=== PATIENT | female | born 1990 | race Caucasian/White ===

== ENCOUNTER 2016-04-07 11:10 | Emergency (ER) | payer OTHER ==
[~2016-04-07] VITALS: Wt 78.0 kg
[2016-04-07] MEDS ORDERED: ONDANSETRON (ODT) 4 MG TAB ODT STA (11:43)
[2016-04-07] MEDS ORDERED: ONDA4TAB14 PO (11:45)
[2016-04-07] MEDS ORDERED: FAMO-18 PO (11:46)
--- NOTE | 2016-04-07 12:27 | ERD ---
ER Documentation Chief Complaint Date/Time DATE: 04/07/16 TIME: 12:23 Chief Complaint ABDOMINAL PAIN CENTRAL AREA WITH WEIRD SMELL . DIAHHREA AND VOMITNG HPI 25 year old female presents to the emergency department status post cholecystectomy since December 2015. Patient is complaining of intermittent abdominal pain, nausea, vomiting and diarrhea since the surgery back in December 2015. Patient is also complaining of a foul odor from her stools. Patient states that she has been evaluated by her primary care physician but they could not find anything, her physician has told her to lose weight. Patient denies taking any medications for this. She denies any medical problems ROS All systems reviewed and are negative except as per history of present illness. Medications Home Meds Active Scripts Famotidine* (Pepcid*) 20 Mg Tablet, 20 MG PO DAILY, #20 TAB Prov:SHIV PORRAS PA-C 04/07/16 Ondansetron (Ondansetron Odt) 4 Mg Tab.rapdis, 4 MG PO Q6H Y for NAUSEA AND/OR VOMITING, #10 TAB Prov:SHIV PORRAS PA-C 04/07/16 Allergies Allergies: Coded Allergies: No Known Allergy (Unverified , 04/07/16) PMhx/Soc History of Surgery: Yes (CHOLECYSTECTOMY ) Anesthesia Reaction: No Hx Neurological Disorder: No Hx Respiratory Disorders: No Hx Cardiac Disorders: No Hx Psychiatric Problems: No Hx Miscellaneous Medical Probl: Yes (OBESITY,VIT D DEFICIENCY) Hx Alcohol Use: No Hx Substance Use: No Hx Tobacco Use: No Smoking Status: Never smoker Physical Exam Vitals Vital Signs Date Time Temp Pulse Resp B/P Pulse Ox O2 Delivery O2 Flow Rate FiO2 04/07/16 11:20 98.5 102 20 138/82 99 Physical Exam GENERAL: well-developed/well-nourished, in no apparent distress, non-toxic appearing HENT: NC/AT, moist mucous membranes EYES: Conjunctiva normal NECK: Supple, no lymphadenopathy PULM: CTA bilaterally, no rales, rhonchi, or wheezing heard CV: Normal S1S2, RRR, good capillary refill GI: Soft, non-distended, non-tender to palpation Normal bowel sounds, no masses or organomegaly felt on exam No gross peritonitis, no bruits Negative Rovsing, negative Vargas, negative McBurney's point, Negative CVAT BACK: No masses EXT: No clubbing, cyanosis, or edema NEURO: Alert and Orientated SKIN: Intact, normal turgor PSYCH: Normal mood and mentation Results 24 hrs Current Medications Medications (Trade) Dose Ordered Sig/Karina Route PRN Reason Start Time Stop Time Status Last Admin Dose Admin Ondansetron HCl (Zofran Odt) 4 mg ONCE STAT ODT 04/07/16 11:43 04/07/16 11:44 DC 04/07/16 11:47 Procedures/MDM This is a 25-year-old female status post cholecystectomy that occurred December 2015 presenting to the emergency room complaining of on and off abdominal pain, nausea, vomiting, foul odor stools since the surgery. Patient states that she has already been evaluated by her primary care physician with a workup however patient said that they could not find anything. On examination patient abdominal exam was unremarkable. She appears well, she has stable vital signs. I discussed with patient that she should follow-up with her primary care physician for further action management. I will low suspicion for small or large bowel obstruction, appendicitis or bacteremia. Patient was given Zofran in the ED and she passed the fluid challenge test. Patient appears well for discharge to follow-up with primary care physician. Discussed return to the ER for any worsening symptoms. She understands and agrees with Departure Diagnosis: Primary Impression: Abdominal pain Additional Impressions: Diarrhea Vomiting Condition: Stable Patient Instructions: Diet, Vomiting Or Diarrhea [6Yr-Adult], Vomiting (6Y- Adult) Referrals: [facility] YOU HAVE RECEIVED A MEDICAL SCREENING EXAM AND THE RESULTS INDICATE THAT YOU DO NOT HAVE A CONDITION THAT REQUIRES URGENT TREATMENT IN THE EMERGENCY DEPARTMENT. FURTHER EVALUATION AND TREATMENT OF YOUR CONDITION CAN WAIT UNTIL YOU ARE SEEN IN YOUR DOCTORS OFFICE WITHIN THE NEXT 1-2 DAYS. IT IS YOUR RESPONSIBILITY TO MAKE AN APPOINTMENT FOR FOLOW-UP CARE. IF YOU HAVE A PRIMARY DOCTOR --you should call your primary doctor and schedule an appointment IF YOU DO NOT HAVE A PRIMARY DOCTOR YOU CAN CALL OUR PHYSICIAN REFERRAL HOTLINE AT IF YOU CAN NOT AFFORD TO SEE A PHYSICIAN YOU CAN CHOSE FROM THE FOLLOWING [facility] [address] [facility]. [facility] [address] [facility] [facility] [address] [facility]. [facility] [address] [facility]. [facility] [address] [facility] [facility] [address] Additional Instructions: FOLLOW UP WITH YOUR PRIMARY CARE PHYSICIAN TOMORROW.Return to this facility if you are not improving as expected. Take all medicines as directed. Return to this facility if you are not improving as expected. SHIV PORRAS PA-C Apr 07, 2016 12:27
== END 2016-04-07 11:54 | disposition home or self-care (01) ==
LOC: FTE 11:10
DX: R10.9 Unspecified abdominal pain (principal); R19.7 Diarrhea, unspecified; R11.10 Vomiting, unspecified; E66.9 Obesity, unspecified
CPT/HCPCS: Z7502; Z7610; 99283